=== PATIENT | male | born 1955 | race Caucasian/White ===

== ENCOUNTER 2016-12-14 13:42 | Emergency (ER) | payer OTHER ==
[~2016-12-14] VITALS: Ht 170.2 cm; Wt 90.7 kg
--- NOTE | 2016-12-14 14:05 | ED GI/GU/ABDOMINAL COMPLAINT ---
History of Present Illness General Chief Complaint: General Adult Stated Complaint: PT WITH POSSIBLE STOMACH BUG Source: patient Exam Limitations: no limitations Vital Signs & Intake/Output Vital Signs & Intake/Output Vital Signs Date Time Temp Pulse Resp B/P Pulse O2 O2 Flow FiO2 Ox Delivery Rate 12/14 1517 98.0 93 18 137/71 97 Room Air 12/14 1346 98.7 90 18 159/74 96 Room Air Allergies Coded Allergies: NO KNOWN ALLERGIES (11/06/12) Triage Note: COMPLAINS OF DIARHEA X 3 DAYS. DENIES ABD PAIN/N/V. Triage Nurses Notes Reviewed? yes Onset: Abrupt Duration: waxing and waning Timing: recent history Quality/Severity: moderate Severity Numbers: 5 Radiation: no radiation Activities at Onset: eating HPI: Patient is a 61-year-old male with a past medical history of hypertension and hyperlipidemia who presents emergency room stating that on Tuesday he drank coffee and had a rapid from [employer] and approximately a few hours later he had acute onset of mild nausea and multiple episodes of loose watery stool diarrhea production. Patient states that the symptoms persisted over the weekend until yesterday . Patient does state that on the first 2 days of his symptoms he tried using Imodium. Patient was able tolerate by mouth as well over the weekend. Patient states during the evening he ate tomato soup and had acute onset of again multiple episodes of nonbloody no black diarrhea loose watery stool production. Patient then became dizzy today however he has been supplementing by mouth water all day. Patient was concerned because the previous episode similar event where he aspirated and was admitted to the hospital for long-term. Patient denies any fevers chills chest pain abdominal pain or current nausea or vomiting. No recent antibiotic use. (DIANA ARANA) Past History Travel History Traveled to [place] past 21 day No Medical History Any Pertinent Medical History? 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 No (DIANA ARANA) Review of Systems Review of Systems Constitutional: Reports: no symptoms. EENTM: Reports: no symptoms. Respiratory: Reports: no symptoms. Cardiovascular: Reports: no symptoms. GI: Reports: see HPI, diarrhea. Denies: abdominal pain. Genitourinary: Reports: no symptoms. Musculoskeletal: Reports: no symptoms. Skin: Reports: no symptoms. Neurological/Psychological: Reports: no symptoms. Hematologic/Endocrine: Reports: no symptoms. Immunologic/Allergic: Reports: no symptoms. All Other Systems: Reviewed and Negative (DIANA ARANA) Physical Exam Physical Exam General Appearance: no apparent distress, alert, comfortable Gastrointestinal: normal bowel sounds, soft, non-tender, NO PERITONEAL SIGNS NO REBOUND TENDERNESS Comments: Well-developed well-nourished person in no acute distress HEENT: Normal EENT exam, Neck: Supple, no lymphadenopathy, normal range of motion without pain or tenderness Back: Nontender, no CVA tenderness. Full range of motion Cardiovascular: Regular rate and rhythms no murmurs rubs or gallops, normal JVP Respiratory: Chest nontender. No respiratory distress.breath sounds clear to auscultation bilaterally Abdomen: Soft, nontender nondistended, no appreciable organomegaly. Normal bowel sounds. No ascites Extremity: No edema, no calf tenderness to palpation, normal and equal pulses. Neuro: Alert oriented x3, motor sensory normal, cranial nerves II through XII grossly intact. Skin: No appreciable rash on exposed skin, skin is warm and dry. Psych: Mood and affect is normal, memory and judgment is normal. Core Measures ACS in differential dx? No Severe Sepsis Present: No Septic Shock Present: No (DIANA ARANA) Progress Differential Diagnosis: AAA, AMI, appendicitis, biliary colic, bowel obstruction , colon cancer, cholecystitis, diverticulitis, epididymitis, esophageal varices, gastritis, hepatitis, hernia, hemorrhoids, ischemic bowel, inflamm bowel dis, Trixie-Мария tear, orchitis, pancreatitis, prostatitis, peptic ulcer, PUD/GERD, perforated viscous, pyelonephritis, SBO, testicular torsion, ureterolithiasis, urinary retention, urethritis, UTI/pyelo Plan of Care: Orders Procedure Date/time Status COMPREHENSIVE METABOLIC PANEL 12/14 1411 Complete CBC WITHOUT DIFFERENTIAL 12/14 1411 Complete Laboratory Tests 12/14/16 1423: Anion Gap 12, Estimated GFR > 60, BUN/Creatinine Ratio 14.4, Glucose 97, Calcium 9.5, Total Bilirubin 1.6 H, AST 26, ALT 54, Alkaline Phosphatase 50, Total Protein 7.1, Albumin 4.3, Globulin 2.8, Albumin/Globulin Ratio 1.5, CBC w Diff NO MAN DIFF REQ, RBC 4.74, MCV 92.7, MCH 32.5 H, RDW 13.2, MPV 7.8, Gran % 70.9 , Lymphocytes % 16.2 L, Monocytes % 11.3 H, Eosinophils % 1.4, Basophils % 0.2 , Absolute Granulocytes 4.6, Absolute Lymphocytes 1.1 L, Absolute Monocytes 0.7 H, Absolute Eosinophils 0.1, Absolute Basophils 0, PUBS MCHC 35.0 Patient currently looks well no apparent distress nontender abdomen afebrile At this time there is no concerns of appendicitis C. difficile or obstruction. Patient had unremarkable blood work and patient again on multiple re-evaluations had nontender abdomen patient's dizziness had since subsided patient was able tolerate by mouth on discharge. Discussed with patient healthy eating habits (DIANA ARANA) Initial ED EKG: none (DIANA ARANA) Departure Departure Disposition: HOME OR SELF CARE Condition: Stable Clinical Impression Primary Impression: Diarrhea Referrals: ADEEL BUENO,DANIEL Cintron (PCP/Family) JULIANNA BUENO,LAWRENCE Garcia Additional Instructions: As discussed begin drinking plenty of water for hydration and a clear liquid bland diet such as toast soup or bread to rest your bowels. Begin the prescription of Bentyl as directed for your symptoms. If no better in 2 days follow-up with public space attendant Dr. LEVINE. Prescription is waiting at [facility] pharmacy. If symptoms worsen return to emergency room Departure Forms: Customer Survey General Discharge Information (DIANA ARANA) PA/[employer] Co-Sign Statement Statement: ED Attending supervision documentation- x I saw and evaluated the patient. I have also reviewed all the pertinent lab results and diagnostic results. I agree with the findings and the plan of care as documented in the PA's/[employer]'s documentation. [] I have reviewed the ED Record and agree with the PA's/[employer] documentation. [] Additions or exceptions (if any) to the PAs/[employer]'s note and plan are summarized below: [] (GONSALO BUENO,DIVINE)
[2016-12-14 14:29] LABS: ABSOLUTE BASOPHIL COUNT 0 /CUMM (0.0-0.2); ABSOLUTE EOSINOPHIL COUNT 0.1 /CUMM (0.0-0.7); ABSOLUTE GRANULOCYTE CT 4.6 /CUMM (1.4-6.5); ABSOLUTE LYMPH COUNT 1.1 /CUMM (1.2-3.4); ABSOLUTE MONOCYTE COUNT 0.7 /CUMM (0.10-0.60); BASOPHIL % 0.2 % (0.0-2.0); EOSINOPHIL % 1.4 % (0-5); GRANULOCYTE % 70.9 % (42.2-75.2); MEAN CORPUSCULAR HGB 32.5 PG (27.0-31.0); MEAN CORPUSCULAR VOLUME 92.7 FL (80.0-94.0); MEAN PLATELET VOLUME 7.8 FL (7.4-10.4); PLATELET COUNT 187 /CUMM (130-400); RBC DISTRIBUTION WIDTH 13.2 % (11.5-14.5); RED BLOOD CELL CT 4.74 /CUMM (4.70-6.10); WHITE BLOOD CELL COUNT 6.5 /CUMM (4.8-10.8)
[2016-12-14 15:17] VITALS: BP 137/71
[2016-12-14] MEDS ORDERED: MOVIPREP POWDE1 EACH (15:30)
[2016-12-14] MEDS ORDERED: METOPROLOL TART25 M1 PO (15:30)
[2016-12-14] MEDS ORDERED: CIALIS5 M1 (15:31)
== END 2016-12-14 15:31 ==
LOC: ERH 13:42
PROVIDERS: Physician Assistant
DX: R19.7 Diarrhea, unspecified (principal)